=== PATIENT | female | born 1995 | race Two or more races ===

== ENCOUNTER 2020-10-02 18:58 | Emergency (ER) | payer SELFPAY ==
[~2020-10-02] VITALS: Ht 152.4 cm; Wt 61.2 kg
[2020-10-02 19:01] VITALS: BP 125/71
== END 2020-10-02 20:14 | disposition left against medical advice (07) ==
LOC: ER 19:00
DX: J02.9 Acute pharyngitis, unspecified (principal); R50.9 Fever, unspecified; R51.9 Headache, unspecified; Z53.21 Procedure and treatment not carried out due to patient leaving prior to being seen by health care provider